=== PATIENT | female | born 1970 ===

== ENCOUNTER → 2024-03-31 | Outpatient (CLI) | payer OTHER, MEDICARE ==
--- NOTE | 2024-03-31 16:23 | HMCIMG ---
HIP UNILAT 2-3VW LEFT HISTORY: Left hip pain COMPARISON: None TECHNIQUE: 3 images of left hip were obtained. FINDINGS: There is no acute displaced fracture or dislocation. Degenerative changes are seen. IMPRESSION: 1. Findings as described above.
== END | disposition home or self-care (01) ==
LOC: RAH 15:21
PROVIDERS: ATTEND Internal Medicine Gastroenterology
DX: M16.12 Unilateral primary osteoarthritis, left hip (principal); M25.552 Pain in left hip
CPT/HCPCS: 73502